=== PATIENT | female | born 1955 | race African-American/Black ===

== ENCOUNTER 2017-07-18 09:46 | Emergency (ER) | payer BC ==
[~2017-07-18] VITALS: Ht 162.6 cm; Wt 84.6 kg
--- NOTE | 2017-07-18 09:58 | PHYS DOC ---
Adult General Chief Complaint Chief Complaint: chest pain HPI HPI 62-year-old female presents with anterior chest pain that started at 6 AM. The pain started after she woke up. She describes it as a pressure. She didn't think it was a baby also she went [place] During her class, the pressure seemed to be increasing and radiated back and forth across her anterior chest. Since it didn't go away, she came to the ED. At this time, it is a low level pressure. She denies shortness of breath or diaphoresis. A cardiac history. She had a stress test done several years ago as part of a preop and was told it was normal. Patient takes hydrochlorothiazide and atenolol for blood pressure. She missed 2 days of her atenolol but took it this morning. Denies any significant history of GERD. Review of Systems Review of Systems Constitutional: Denies fever or chills [] Eyes: Denies change in visual acuity, redness, or eye pain [] HENT: Denies nasal congestion or sore throat [] Respiratory: Denies cough or shortness of breath [] Cardiovascular: No additional information not addressed in HPI [] GI: Denies abdominal pain, nausea, vomiting, bloody stools or diarrhea [] : Denies dysuria or hematuria [] Musculoskeletal: Denies back pain or joint pain [] Integument: Denies rash or skin lesions [] Neurologic: Denies headache, focal weakness or sensory changes [] Endocrine: Denies polyuria or polydipsia [] All other systems were reviewed and found to be within normal limits, except as documented in this note. Physical Exam Physical Exam Constitutional: Well developed, well nourished, no acute distress, non-toxic appearance. [] HENT: Normocephalic, atraumatic, bilateral external ears normal, oropharynx moist, no oral exudates, nose normal. [] Eyes: PERRLA, EOMI, conjunctiva normal, no discharge. [] Neck: Normal range of motion, no tenderness, supple, no stridor. [] Cardiovascular:Heart rate regular rhythm, no murmur [] Lungs & Thorax: Bilateral breath sounds clear to auscultation [] Abdomen: Bowel sounds normal, soft, no tenderness, no masses, no pulsatile masses. [] Skin: Warm, dry, no erythema, no rash. [] Back: No tenderness, no CVA tenderness. [] Extremities: No tenderness, no cyanosis, no clubbing, ROM intact, no edema. [] Neurologic: Alert and oriented X 3, normal motor function, normal sensory function, no focal deficits noted. [] Psychologic: Affect normal, judgement normal, mood normal. [] EKG EKG EKG normal sinus rhythm, rate 60, normal axis, no ST elevations or depressions. Mildly inverted T waves V2 V3.[] Radiology/Procedures Radiology/Procedures EXAM: Chest, 2 views. HISTORY: Chest pain. COMPARISON: None. FINDINGS: Frontal and lateral views of chest are obtained. There is no infiltrate, effusion or pneumothorax. The heart is normal in size. There is mild scoliosis. IMPRESSION: No acute pulmonary finding. Electronically signed by: Marisol Busch MD (07/18/2017 10:24 AM) [facility] DICTATED AND SIGNED BY: MARISOL BUSCH MD DATE: 07/18/17 1023[] Course & Med Decision Making Course & Med Decision Making Pertinent Labs and Imaging studies reviewed. (See chart for details) Chest x-rays negative for acute findings. Labs are unremarkable. Troponin is negative. Patient's pain does not appear to be cardiac or pulmonary in nature. I will try a GI cocktail. The aspirin decreased patient's pain some. The GI cocktail did make her feel quite a bit better. It is possible the patient was having some upset stomach from being away from home and having increased stress with her class. She feels well enough to go home. [] Dragon Disclaimer Dragon Disclaimer This electronic medical record was generated, in whole or in part, using a voice recognition dictation system. ANDRADE SANDOVAL DO July 18, 2017 09:57
[2017-07-18 10:24] LABS: BASO # 0.1 x10^3/uL (0.0-0.2); BASO % 1 % (0-3); EOS # 0.2 x10^3/uL (0.0-0.7); EOS % 3 % (0-3); HEMOGLOBIN 11.9 g/dL (12.0-15.5); LYMPH # 1.9 x10^3/uL (1.0-4.8); LYMPH % 23 % (24-48); MEAN CORPUSCULAR HEMOGLOBIN 24 pg (25-35); MEAN CORPUSCULAR HGB CONC 32 g/dL (31-37); MEAN CORPUSCULAR VOLUME 75 fL (79-100); MONO # 0.6 x10^3/uL (0.0-1.1); MONO % 7 % (0-9); NEUT # 5.5 x10^3uL (1.8-7.7); NEUT % 66 % (31-73); PLATELET COUNT 278 x10^3/uL (140-400); RED BLOOD COUNT 4.91 x10^6/uL (3.50-5.40); RED CELL DISTRIBUTION WIDTH 14.6 % (11.5-14.5); WHITE BLOOD COUNT 8.4 x10^3/uL (4.0-11.0)
--- NOTE | 2017-07-18 10:27 | RAD ---
EXAM: Chest, 2 views. HISTORY: Chest pain. COMPARISON: None. FINDINGS: Frontal and lateral views of chest are obtained. There is no infiltrate, effusion or pneumothorax. The heart is normal in size. There is mild scoliosis. IMPRESSION: No acute pulmonary finding. Electronically signed by: Marisol Busch MD (07/18/2017 10:24 AM) [place] [id number]
[2017-07-18 10:32] LABS: CALCIUM 9.6 mg/dL (8.5-10.1); CREATININE 0.8 mg/dL (0.6-1.0); GFR 87.9
[2017-07-18] MEDS ORDERED: ASPIRIN 81 MG TAB.CHEW PO ONE (10:45)
[2017-07-18 11:30] VITALS: BP 160/90
[2017-07-18] MEDS ORDERED: LIDO:MAALOX 1:1 20 ML SINGLE DOSE. PO ONE (11:30)
--- NOTE | 2017-07-18 11:50 | EKG ---
[address] [address] Test Date: 2017-07-18 Test Time: 09:51:32 Pat Name: SHAKILA RAMIREZ Department: Room: Gender: F Drafting Detailer: LORETA : 1955 Requested By: ANDRADE SANDOVAL Order Number: [id number] Reading MD: Measurements Intervals Moro Rate: 60 P: 0 MD: 198 QRS: 18 QRSD: 78 T: 25 QT: 440 QTc: 440 Interpretive Statements SINUS RHYTHM NORMAL ECG RI6.01 No previous ECG available for comparison
== END 2017-07-18 11:45 | disposition home or self-care (01) ==
LOC: ER 09:46
DX: R07.89 Other chest pain (principal)
CPT/HCPCS: 36415; 71046; 80048; 84484; 85025; 93005; 99285-25